=== PATIENT | male | born 1990 | race Caucasian/White ===

== ENCOUNTER 2017-11-29 20:35 | Emergency (ER) | payer MEDICAID ==
[2017-11-29] MEDS: LIDOCAINE/MYLANTA 40 ML BTL PO (23:12)
== END 2017-11-29 23:46 | disposition home or self-care (01) ==
LOC: FTE 20:35
DX: F41.9 Anxiety disorder, unspecified (principal); F15.90 Other stimulant use, unspecified, uncomplicated
CPT/HCPCS: 71045; 93005; 99284-25

== ENCOUNTER 2017-12-02 01:36 | Emergency (ER) | payer MEDICAID | END 2017-12-02 03:12 | disposition home or self-care (01) | LOC: E/R 01:36 | DX: F15.10 Other stimulant abuse, uncomplicated (principal); R40.2142 Coma scale, eyes open, spontaneous, at arrival to emergency department; R40.2362 Coma scale, best motor response, obeys commands, at arrival to emergency department; R40.2252 Coma scale, best verbal response, oriented, at arrival to emergency department | CPT/HCPCS: 99282; Z7502 ==

== ENCOUNTER 2017-12-02 18:43 | Emergency (ER) | payer SELFPAY, MEDICAID | END 2017-12-03 00:30 | disposition left against medical advice (07) | LOC: E/R 18:43 | DX: Z53.21 Procedure and treatment not carried out due to patient leaving prior to being seen by health care provider (principal) ==